=== PATIENT | male | born 1970 | race Caucasian/White ===

== ENCOUNTER 2018-04-14 08:32 | Inpatient (IN) | payer BC ==
[2018-04-14] MEDS ORDERED: MORPHINE 4 MG/ML SYR ONE ×2 (09:09→10:40)
[2018-04-14] MEDS ORDERED: ONDANSETRON 4 MG/2 ML VIAL ONE ×2 (09:09→10:40)
[2018-04-14] MEDS ORDERED: FAMOTIDINE 20 MG/2 ML VIAL IV ONE (09:10)
[2018-04-14] MEDS ORDERED: NA CHLORIDE 0.9% 1,000 ML ONE (09:10)
[2018-04-14 09:16] LABS: Absolute Lymphocytes (CBC) 1.9 K/uL (0.7-4.9); Absolute Monocytes 1.8 K/uL (0.1-1.3); Absolute Neutrophil 15.7 K/uL (1.8-8.0); Basophils % 0.9 % (0-1.3); Eosinophils % 0.6 % (0-4.4); Hematocrit 50.2 % (39.6-49.0); Lymphocytes % 9.6 % (15.3-44.8); MCV 84.6 fL (80-100); MPV 8.4 fL (7.6-11.3); Monocytes % 9.1 % (3.3-12.3); RBC Red Blood Cell Count 5.94 M/uL (4.33-5.43)
[2018-04-14 09:43] LABS: Albumin 4.2 g/dL (3.4-5.0); Bilirubin Direct 0.3 mg/dL (0-0.2); Potassium 4.2 mmol/L (3.5-5.1); Protein, Total 8.5 g/dL (6.4-8.2)
[2018-04-14] MEDS ORDERED: PIPER/TAZO/NS 3.375gm 3.375 GM/100 ML BAG ONE (10:17)
[2018-04-14] MEDS ORDERED: METRONIDAZOLE 500mg IVPB 500 MG/100 ML BAG IV ONE (10:17)
--- NOTE | 2018-04-14 10:18 | RAD REPORT ---
EXAM DESCRIPTION: CTAbdomen Pelvis W Contrast - 04/14/2018 10:07 am CLINICAL HISTORY: Abdominal pain. ABD PAIN COMPARISON: No comparisons TECHNIQUE: Biphasic CT imaging of the abdomen and pelvis was performed with 100 ml non-ionic IV cont rast. All CT scans are performed using dose optimization technique as appropriate and may include automated exposure control or mA/KV adjustment according to patient size. FINDINGS: The lung bases are clear. Mild diffuse fatty liver is seen. Cholecystectomy clips are present. The spleen, adrenal glands and k idneys are within normal limits. Small renal cysts are present bilaterally. Mild peripancreatic fat stranding and edema is seen involving the pancreatic head and uncinate proces s compatible with mild acute pancreatitis. No evidence of pancreatic necrosis, pseudocyst or portal v enous thrombosis. No bowel obstruction, free air, free fluid or abscess. The appendix appears absent. No evidence of significant lymphadenopathy. No suspicious bony findings. IMPRESSION: Mild acute pancreatitis is suspected. Fatty liver. Cholecystectomy. Appendectomy.
--- NOTE | 2018-04-14 10:30 | ER ---
Nurse's Notes [facility] Name: Jose Quevedo Age: 47 yrs Sex: Male : 1970 Arrival Date: 04/14/2018 Time: 08:33 Bed 18 Private MD: Eriberto Powell B Diagnosis: Acute pancreatitis;Abdominal and pelvic pain Presentation: 04/14 08:45 Presenting complaint: Patient states: abd pain, N/V/D x 4 days. Transition of care: ss patient was not received from another setting of care. Onset of symptoms was April 10, 2018. Risk Assessment: Do you want to hurt yourself or someone else? Patient reports no desire to harm self or others. Initial Sepsis Screen: Does the patient meet any 2 criteria? No. Patient's initial sepsis screen is negative. Does the patient have a suspected source of infection? No. Patient's initial sepsis screen is negative. Care prior to arrival: None. 08:45 Method Of Arrival: Ambulatory ss 08:45 Acuity: SUKHDEEP 3 ss Historical: - Allergies: 08:52 Codeine; ss 12:26 Talwin; em - Home Meds: 13:03 gabapentin 300 mg oral cap [Active]; Zofran (as hydrochloride) 8 mg Oral tab [Active]; em Colestid 1 gram Oral tab [Active]; lisinopril 10 mg Oral tab [Active]; Synjardy 12.5-1,000 mg oral tab [Active]; - PMHx: 08:52 Hypertension; Diabetes - IDDM; ss - PSHx: 08:52 back sx; R arm; hand (tendon release); Tonsillectomy; Adenoids; Appendectomy; ss 13:04 Cholecystectomy; em - Immunization history:: Adult Immunizations up to date. - Social history:: Smoking status: Patient/guardian denies using tobacco. - Ebola Screening: : Patient denies exposure to infectious person Patient denies travel to an Ebola-affected area in the 21 days before illness onset. Screenin:28 Abuse screen: Denies threats or abuse. Nutritional screening: No deficits noted. em Tuberculosis screening: No symptoms or risk factors identified. Fall Risk None identified. Assessment: 09:00 General: Appears in no apparent distress. uncomfortable, Behavior is calm, cooperative, em Reports fever for 12-24 hours. Pain: Complains of pain in right upper quadrant and right lower quadrant Pain currently is 8 out of 10 on a pain scale. Neuro: Level of Consciousness is awake, alert, obeys commands, Oriented to person, place, time, situation. Cardiovascular: Capillary refill < 3 seconds Patient's skin is warm and dry. Respiratory: Airway is patent Respiratory effort is even, unlabored, Respiratory pattern is regular, symmetrical. GI: Abdomen is round non-distended, Bowel sounds present X 4 quads. Abd is soft and non tender X 4 quads. Reports diarrhea, intolerance of fluids, intolerance of food, nausea, vomiting. : No signs and/or symptoms were reported regarding the genitourinary system. EENT: No signs and/or symptoms were reported regarding the EENT system. Derm: Skin is intact, Skin is pink, warm \T\ dry. Musculoskeletal: Range of motion: intact in all extremities. 09:01 General: the previous assessment is accurate, call light remains within reach. ss 10:00 Reassessment: Patient appears in no apparent distress at this time. Patient and/or em family updated on plan of care and expected duration. Pain level reassessed. Patient is alert, oriented x 3, equal unlabored respirations, skin warm/dry/pink. rates pain 4/10. 11:00 Reassessment: Patient appears in no apparent distress at this time. Patient and/or em family updated on plan of care and expected duration. Pain level reassessed. request more pain medication, Dr. Dubon notified, new orders received. 11:15 Reassessment: Dr. Nj at bedside discussing POC, pt will be admitted, pending room em assignment. 12:06 Reassessment: Patient appears in no apparent distress at this time. Patient and/or em family updated on plan of care and expected duration. Pain level reassessed. Patient is alert, oriented x 3, equal unlabored respirations, skin warm/dry/pink. Patient states feeling better. Patient states symptoms have improved. 13:00 Reassessment: Patient appears in no apparent distress at this time. Patient and/or em family updated on plan of care and expected duration. Pain level reassessed. Patient is alert, oriented x 3, equal unlabored respirations, skin warm/dry/pink. Vital Signs: 08:52 BP 148 / 103; Pulse 119; Resp 17; Pulse Ox 97% on R/A; Weight 136.08 kg; Height 6 ft. 3 ss in. (190.50 cm); Pain 8/10; 09:28 BP 140 / 99; Pulse 102; Resp 18; Pulse Ox 97% on R/A; Pain 4/10; em 10:30 BP 134 / 100; Pulse 105; Resp 18; Temp 98.1(O); Pulse Ox 99% on R/A; Pain 6/10; em 11:30 BP 132 / 88; Pulse 102; Resp 18; Pulse Ox 97% on R/A; Pain 4/10; em 12:55 BP 140 / 93; Pulse 100; Resp 18; Pulse Ox 98% on R/A; Pain 4/10; em 08:52 Body Mass Index 37.50 (136.08 kg, 190.50 cm) ss ED Course: 08:33 Patient arrived in ED. as 08:33 Eriberto Powell MD is Private Physician. as 08:34 Regan Dubon MD is Attending Physician. kdr 08:40 Shade Hawkins LVN is Primary Nurse. em 08:46 Triage completed. ss 08:52 Arm band placed on right wrist. ss 09:00 Initial lab(s) drawn, by me, sent to lab. Inserted saline lock: 20 gauge in left dh3 antecubital area, using aseptic technique. Blood collected. 09:08 Radiology exam delayed due to lab results not completed at this time. (BUN/Creatinine). kw1 09:28 Patient has correct armband on for positive identification. Placed in gown. Bed in low em position. Call light in reach. Side rails up X 1. Adult w/ patient. 10:06 CT completed. Patient tolerated procedure well. Patient moved back from CT. kw1 10:07 CT Abd/Pelvis - W/Contrast In Process Unspecified. EDMS 10:29 Laverne Nj MD is Hospitalizing Provider. kdr 10:30 Urine collected: clean catch specimen, ruiz colored. dh3 11:15 No provider procedures requiring assistance completed. Missed attempt(s): 20 gauge 22 em gauge in right forearm. antecubital area. Bleeding controlled, band aid applied, catheter tip intact. 12:56 Patient admitted, IV remains in place. em Administered Medications: 09:19 Drug: NS 0.9% 1000 ml Route: IV; Rate: 1 bolus; Site: left forearm; em 11:50 Follow up: IV Status: Completed infusion; IV Intake: 1000ml em 09:20 Drug: Zofran 4 mg Route: IVP; Site: left forearm; ss 10:06 Follow up: Response: No adverse reaction; Nausea is decreased em 09:20 Drug: morphine 4 mg Route: IVP; Site: left antecubital; ss 10:06 Follow up: Response: No adverse reaction; Pain is decreased em 09:21 Drug: Pepcid 20 mg Route: IVP; Site: left antecubital; ss 10:06 Follow up: Response: No adverse reaction em 10:33 Drug: Zosyn 3.375 grams Route: IVPB; Infused Over: 60 mins; Site: left antecubital; em 11:50 Follow up: Response: No adverse reaction; IV Status: Completed infusion; IV Intake: em 100ml 10:33 Drug: Flagyl 500 mg Volume: 100 ml; Route: IVPB; Rate: 200 ml/hr; Infused Over: 30 em mins; Site: left antecubital; 11:51 Follow up: Response: No adverse reaction; IV Status: Completed infusion; IV Intake: em 200ml 11:49 Drug: morphine 4 mg Route: IVP; Site: left antecubital; em 12:03 Follow up: Response: No adverse reaction; Pain is decreased em 11:49 Drug: NS 0.45 % 1000 ml Route: IV; Rate: 150 ml/hr; Site: left antecubital; em 13:08 Follow up: IV Status: Infusion continued upon admission; IV Intake: 200ml em 11:50 Drug: Zofran 4 mg Route: IVP; Site: left antecubital; em 12:03 Follow up: Response: No adverse reaction; Nausea is decreased em Intake: 11:50 IV: 1000ml; Total: 1000ml. em 11:50 IV: 100ml; Total: 1100ml. em 11:51 IV: 200ml; Total: 1300ml. em 13:08 IV: 200ml; Total: 1500ml. em Outcome: 10:30 Decision to Hospitalize by Provider. kdr 13:00 Admitted to Med/surg accompanied by tech, via wheelchair, room 417, with chart, Report em called to MAGDA Keane 13:00 Condition: good 13:00 Instructed on the need for admit, Demonstrated understanding of instructions. 13:31 Patient left the ED. em Signatures: Dispatcher [employer] EDRegan Guillen MD MD kdr Munoz, Edgar, CHIEF SERVICE DISPATCHER CHIEF SERVICE DISPATCHER Magalis Medina Shelby, MAGDA RN Linda Moss [facility] Kaelyn Chaudharyberly kw1 Corrections: (The following items were deleted from the chart) :34 09:30 Inserted saline lock: 20 gauge in left antecubital area, using aseptic technique. [facility] Blood collected. [facility] 34 09:30 Initial lab(s) drawn, by me, sent to lab. [place] [id number] 12:56 12:55 BP 109 / 3; Pulse 100bpm; Resp 18bpm; Pulse Ox 98% RA; Pain 4/10; em em
--- NOTE | 2018-04-14 10:31 | EDPHYS ---
Physician Documentation [facility] Name: Jose Quevedo Age: 47 yrs Sex: Male : 1970 Arrival Date: 04/14/2018 Time: 08:33 Bed 18 Private MD: Eriberto Powell B ED Physician Regan Dubon HPI: 04/14 10:03 This 47 yrs old Male presents to ER via Ambulatory with complaints of kdr Abdominal Pain. 10:03 The patient presents with abdominal pain that is diffuse. Onset: The symptoms/episode kdr began/occurred 4 day(s) ago. The symptoms do not radiate. Associated signs and symptoms: Pertinent positives: nausea, vomiting, and diarrhea, N/V/D at onset but no BM and little gas for the last 24 hours, Pertinent negatives: blood in stools, chest pain, constipation, fever, headache, hematuria, palpitations, shortness of breath, testicular pain. The symptoms are described as burning, constant, dull, vague. Modifying factors: The symptoms are alleviated by nothing, the symptoms are aggravated by breathing deeply, movement, pressure, vomiting, walking. Severity of pain: At its worst the pain was moderate severe just prior to arrival, in the emergency department the pain is unchanged. The patient has not experienced similar symptoms in the past. The patient has not recently seen a physician. Historical: - Allergies: 08:52 Codeine; ss 12:26 Talwin; em - Home Meds: 13:03 gabapentin 300 mg oral cap [Active]; Zofran (as hydrochloride) 8 mg Oral tab [Active]; em Colestid 1 gram Oral tab [Active]; lisinopril 10 mg Oral tab [Active]; Synjardy 12.5-1,000 mg oral tab [Active]; - PMHx: 08:52 Hypertension; Diabetes - IDDM; ss - PSHx: 08:52 back sx; R arm; hand (tendon release); Tonsillectomy; Adenoids; Appendectomy; ss 13:04 Cholecystectomy; em - Immunization history:: Adult Immunizations up to date. - Social history:: Smoking status: Patient/guardian denies using tobacco. - Ebola Screening: : Patient denies exposure to infectious person Patient denies travel to an Ebola-affected area in the 21 days before illness onset. ROS: 10:03 Constitutional: Negative for fever, chills, and weight loss, Eyes: Negative for injury, kdr pain, redness, and discharge, ENT: Negative for injury, pain, and discharge, Neck: Negative for injury, pain, and swelling, Cardiovascular: Negative for chest pain, palpitations, and edema, Respiratory: Negative for shortness of breath, cough, wheezing, and pleuritic chest pain, Back: Negative for injury and pain, : Negative for injury, bleeding, discharge, and swelling, MS/Extremity: Negative for injury and deformity, Skin: Negative for injury, rash, and discoloration, Neuro: Negative for headache, weakness, numbness, tingling, and seizure activity. Psych: Negative for depression, anxiety, suicide ideation, homicidal ideation, and hallucinations, Allergy/Immunology: Negative for hives, rash, and allergies, Endocrine: Negative for neck swelling, polydipsia, polyuria, polyphagia, and marked weight changes, Hematologic/Lymphatic: Negative for swollen nodes, abnormal bleeding, and unusual bruising. 10:03 Abdomen/GI: Positive for abdominal pain, nausea, vomiting, and diarrhea, abdominal cramps, anorexia, Negative for constipation, abdominal distension, hematemesis, black/tarry stool, rectal pain, rectal bleeding, bowel incontinence, flatulence. Exam: 10:03 Constitutional: This is a well developed, well nourished patient who is awake, alert, kdr and in no acute distress. Head/Face: Normocephalic, atraumatic. Eyes: Pupils equal round and reactive to light, extra-ocular motions intact. Lids and lashes normal. Conjunctiva and sclera are non-icteric and not injected. Cornea within normal limits. Periorbital areas with no swelling, redness, or edema. Neck: Trachea midline, no thyromegaly or masses palpated, and no cervical lymphadenopathy. Supple, full range of motion without nuchal rigidity, or vertebral point tenderness. No Meningismus. Chest/axilla: Normal chest wall appearance and motion. Nontender with no deformity. No lesions are appreciated. Cardiovascular: Regular rate and rhythm with a normal S1 and S2. No gallops, murmurs, or rubs. Normal PMI, no JVD. No pulse deficits. Respiratory: Lungs have equal breath sounds bilaterally, clear to auscultation and percussion. No rales, rhonchi or wheezes noted. No increased work of breathing, no retractions or nasal flaring. Back: No spinal tenderness. No costovertebral tenderness. Full range of motion. Skin: Warm, dry with normal turgor. Normal color with no rashes, no lesions, and no evidence of cellulitis. MS/ Extremity: Pulses equal, no cyanosis. Neurovascular intact. Full, normal range of motion. Neuro: Awake and alert, GCS 15, oriented to person, place, time, and situation. Cranial nerves II-XII grossly intact. Motor strength 5/5 in all extremities. Sensory grossly intact. Cerebellar exam normal. Normal gait. Psych: Awake, alert, with orientation to person, place and time. Behavior, mood, and affect are within normal limits. 10:03 Abdomen/GI: Inspection: obese Bowel sounds: diminished, in all quadrants, Palpation: soft, moderate abdominal tenderness, in all quadrants. Vital Signs: 08:52 BP 148 / 103; Pulse 119; Resp 17; Pulse Ox 97% on R/A; Weight 136.08 kg; Height 6 ft. 3 ss in. (190.50 cm); Pain 8/10; 09:28 BP 140 / 99; Pulse 102; Resp 18; Pulse Ox 97% on R/A; Pain 4/10; em 10:30 BP 134 / 100; Pulse 105; Resp 18; Temp 98.1(O); Pulse Ox 99% on R/A; Pain 6/10; em 11:30 BP 132 / 88; Pulse 102; Resp 18; Pulse Ox 97% on R/A; Pain 4/10; em 12:55 BP 140 / 93; Pulse 100; Resp 18; Pulse Ox 98% on R/A; Pain 4/10; em 08:52 Body Mass Index 37.50 (136.08 kg, 190.50 cm) ss MDM: 10:03 Data reviewed: vital signs, nurses notes, lab test result(s), radiologic studies. kdr Counseling: I had a detailed discussion with the patient and/or guardian regarding: the historical points, exam findings, and any diagnostic results supporting the discharge/admit diagnosis, lab results, radiology results. 10:30 Patient medically screened. kdr 04/14 08:55 Order name: Basic Metabolic Panel; Complete Time: 10:01 kdr 04/14 08:55 Order name: CBC with Diff; Complete Time: 10:01 kdr 04/14 08:55 Order name: Creatinine for Radiology; Complete Time: 10: kdr 04/14 08:55 Order name: Hepatic Function; Complete Time: 10: kdr 04/14 08:55 Order name: Lipase; Complete Time: 10: kdr 04/14 08:55 Order name: CT Abd/Pelvis - W/Contrast; Complete Time: 10:20 kdr 04/14 10:32 Order name: Urine Dipstick--Ancillary (enter results) eb 04/14 08:55 Order name: IV Saline Lock; Complete Time: 09: kdr 04/14 08:55 Order name: Labs collected and sent; Complete Time: 09: kdr 04/14 08:55 Order name: Urine Dipstick-Ancillary (obtain specimen); Complete Time: 10:31 kdr Administered Medications: 09:19 Drug: NS 0.9% 1000 ml Route: IV; Rate: 1 bolus; Site: left forearm; em 11:50 Follow up: IV Status: Completed infusion; IV Intake: 1000ml em 09:20 Drug: Zofran 4 mg Route: IVP; Site: left forearm; ss 10:06 Follow up: Response: No adverse reaction; Nausea is decreased em 09:20 Drug: morphine 4 mg Route: IVP; Site: left antecubital; ss 10:06 Follow up: Response: No adverse reaction; Pain is decreased em 09:21 Drug: Pepcid 20 mg Route: IVP; Site: left antecubital; ss 10:06 Follow up: Response: No adverse reaction em 10:33 Drug: Zosyn 3.375 grams Route: IVPB; Infused Over: 60 mins; Site: left antecubital; em 11:50 Follow up: Response: No adverse reaction; IV Status: Completed infusion; IV Intake: em 100ml 10:33 Drug: Flagyl 500 mg Volume: 100 ml; Route: IVPB; Rate: 200 ml/hr; Infused Over: 30 em mins; Site: left antecubital; 11:51 Follow up: Response: No adverse reaction; IV Status: Completed infusion; IV Intake: em 200ml 11:49 Drug: morphine 4 mg Route: IVP; Site: left antecubital; em 12:03 Follow up: Response: No adverse reaction; Pain is decreased em 11:49 Drug: NS 0.45 % 1000 ml Route: IV; Rate: 150 ml/hr; Site: left antecubital; em 13:08 Follow up: IV Status: Infusion continued upon admission; IV Intake: 200ml em 11:50 Drug: Zofran 4 mg Route: IVP; Site: left antecubital; em 12:03 Follow up: Response: No adverse reaction; Nausea is decreased em Disposition: 04/14/18 10:30 Hospitalization ordered by Laverne Nj for Inpatient Admission. Preliminary diagnosis are Acute pancreatitis, Abdominal and pelvic pain. - Bed requested for Telemetry/MedSurg (Inpatient). - Status is Inpatient Admission. em - Condition is Fair. - Problem is new. - Symptoms have improved. UTI on Admission? No Signatures: Dispatcher [employer] EDAK Regan Dubon MD MD [facility] Shade Hawkins, ORNAMENT SETTER ORNAMENT SETTER em Perez, Pb em1 Dayan Giron, AMGDA RN ss Pam Gregg Corrections: (The following items were deleted from the chart) 10:32 08:55 UA MICROSCOPIC+U.LAB.BRZ ordered. [facility] EDAK 10:38 10:30 Hospitalization Ordered by Laverne Nj MD for Inpatient Admission. Preliminary eb diagnosis is Acute pancreatitis; Abdominal and pelvic pain. Bed requested for Telemetry/MedSurg (Inpatient). Status is Inpatient Admission. Condition is Fair. Problem is new. Symptoms have improved. UTI on Admission? No. kdr 12:28 10:38 04/14/2018 10:30 Hospitalization Ordered by Laverne Nj MD for Inpatient em1 Admission. Preliminary diagnosis is Acute pancreatitis; Abdominal and pelvic pain. Bed requested for Telemetry/MedSurg (Inpatient). Status is Inpatient Admission. Condition is Fair. Problem is new. Symptoms have improved. UTI on Admission? No. eb 13:31 12:28 04/14/2018 10:30 Hospitalization Ordered by Laverne Nj MD for Inpatient em Admission. Preliminary diagnosis is Acute pancreatitis; Abdominal and pelvic pain. Bed requested for Telemetry/MedSurg (Inpatient). Status is Inpatient Admission. Condition is Fair. Problem is new. Symptoms have improved. UTI on Admission? No. em1
[2018-04-14] MEDS ORDERED: NACHLORIDE 0.45% 1,000 ML IV ONE (10:40)
[2018-04-14 10:49] LABS: Urine Blood TRACE (NEG); Urine Glucose 2+ (NEG); Urine Protein TRACE (NEG); Urine Specific Gravity 1.015 (1.005-1.030); Urine pH 5.5 (5.0-7.0)
--- NOTE | 2018-04-14 12:59 | P.HP ---
Certification for Inpatient Patient admitted to: Inpatient With expected LOS: >2 Midnights Patient will require the following post-hospital care: None Practitioner: I am a practitioner with admitting privileges, knowledge of patient current condition, hospital course, and medical plan of care. Services: Services provided to patient in accordance with Admission requirements found in Title 42 Section 412.3 of the Code of Federal Regulations Patient History Date of Service: 04/14/18 Primary Care Provider: Dr Powell Reason for admission: Abd Pain History of Present Illness: This is a 47-year-old male with significant past medical history of diabetes and hypertension presented to the ED complaining of having some abdominal pain nausea and vomiting that has been going on since last Monday. Patient stated that his abdominal pain got progressively worse and he was no longer able to keep anything down thus he decided to come to the ER. Patient stated that he was recently seen by his primary care provider and had lab work done which was consistent with hypertriglycerides and was asked to take medication and make diet modification to avoid any complication. Patient stated that his abdominal pain is generalized and cramping in nature. Patient stated that last night he tried to have some soup however had committing immediately after that. Patient states that the since last Monday he has not had anything to eat properly. Patient also complained of having some chills at the house. Denies having any fever, shortness of breath chest pain or any other associated symptoms at this time. In the ER patient had extensive workup and was found to have a lipase of 10,000 and thus was referred over for admission for pancreatitis. Review of Systems General: As per HPI Physical Examination - Physical Exam General: Alert, Oriented x3, Mild distress HEENT: Atraumatic Neck: Supple, 2+ carotid pulse no bruit, No LAD, Without JVD or thyroid abnormality Respiratory: Clear to auscultation bilaterally, Normal air movement Cardiovascular: Regular rate/rhythm, Normal S1 S2 Gastrointestinal: Normal bowel sounds, Soft and benign, Non-distended, Tenderness (Generalized tenderness) Musculoskeletal: No tenderness Integumentary: No rashes Neurological: Normal speech, Normal tone Lymphatics: No axilla or inguinal lymphadenopathy - Studies Laboratory Data (last 24 hrs) 04/14/18 09:03: Creatinine 1.00 04/14/18 09:03: WBC 19.7 H, Hgb 17.2, Hct 50.2 H, Plt Count 326 04/14/18 09:03: Sodium 133 L, Potassium 4.2, BUN 13, Creatinine 1.00, Glucose 127 H, Total Bilirubin 1.0, AST 41 H, ALT 74, Alkaline Phosphatase 142 H, Lipase [id number] H Assessment and Plan - Problems (Diagnosis) (1) Pancreatitis Current Visit: Yes Status: Acute Plan: Acute pancreatitis with lipase of more than 10,000 most likely secondary to hypertriglyceridemia. Patient is status post cholecystectomy and appendectomy. Patient also denies alcohol use along with tobacco usage. -IV fluids, NPO, pain management -patient educated extensively on the disease process and the need to make lifestyle modification with diet and exercise changes. Qualifiers: Chronicity: acute Pancreatitis type: unspecified pancreatitis type Acute pancreatitis complication: no infection or necrosis Qualified Code(s): K85.90 - Acute pancreatitis without necrosis or infection, unspecified (2) HTN (hypertension) Current Visit: Yes Status: Chronic Plan: Restart home medication Qualifiers: Hypertension type: essential hypertension Qualified Code(s): I10 - Essential (primary) hypertension (3) Diabetes Current Visit: Yes Status: Chronic Plan: Restart home medication Qualifiers: Diabetes mellitus type: type 2 Diabetes mellitus shelter insulin use: without superintendent container terminal use Diabetes mellitus complication status: without complication Qualified Code(s): E11.9 - Type 2 diabetes mellitus without complications (4) Hyperlipidemia Current Visit: Yes Status: Chronic Plan: Restart home medication Qualifiers: Hyperlipidemia type: pure hyperglyceridemia Qualified Code(s): E78.1 - Pure hyperglyceridemia (5) Obesity Current Visit: Yes Status: Chronic Qualifiers: Obesity type: due to excess calories Obesity classification: adult class 1 (BMI 30 - 34.9) Serious obesity comorbidity presence: without serious comorbidity Body mass index: BMI 32.0-32.9 Qualified Code(s): E66.09 - Other obesity due to excess calories; Z68.32 - Body mass index (BMI) 32.0-32.9, adult Discharge Plan: Home Plan to discharge in: 72 Hours - Advance Directives Does patient have a Living Will: No Does patient have a Durable POA for Healthcare: No - Code Status/Comfort Care Code Status Assessed: Yes Critical Care: No
[2018-04-14] MEDS: ONDANSETRON 4 MG/2 ML VIAL IV PRN ×2 (14:03→20:23)
[2018-04-14] MEDS: MORPHINE 4 MG/ML SYR IV PRN ×3 (14:03→22:16)
[2018-04-14] MEDS: NA CHLORIDE 0.9% 1,000 ML IV SCH ×2 (14:04→22:15)
[2018-04-14 15:03] VITALS: BMI 37.5
[2018-04-14] MEDS: ACETAMINOPHEN 500 MG TAB PO PRN (20:23)
[2018-04-14 22:53] LABS: Absolute Lymphocytes (CBC) 1.5 K/uL (0.7-4.9); Absolute Monocytes 2.1 K/uL (0.1-1.3); Absolute Neutrophil 16.7 K/uL (1.8-8.0); Basophils % 0.6 % (0-1.3); Eosinophils % 0.3 % (0-4.4); Hematocrit 46.3 % (39.6-49.0); Lymphocytes % 7.2 % (15.3-44.8); MCH 28.8 pg (27.0-35.0); MCV 85.5 fL (80-100); MPV 8.3 fL (7.6-11.3); Monocytes % 10.1 % (3.3-12.3); RBC Red Blood Cell Count 5.41 M/uL (4.33-5.43)
[2018-04-14 23:02] LABS: Albumin 3.6 g/dL (3.4-5.0); Bilirubin Total 1.6 mg/dL (0.2-1.0); Potassium 4.1 mmol/L (3.5-5.1); Protein, Total 7.4 g/dL (6.4-8.2)
[2018-04-14 23:13] LABS: Platelet Estimate ADEQ
[2018-04-14 23:14] LABS: Blood Morphology Comment NOT SEEN (NOT SEEN)
[2018-04-15] MEDS: ACETAMINOPHEN 500 MG TAB PO PRN ×2 (00:30→15:40)
[2018-04-15] MEDS: MORPHINE 4 MG/ML SYR IV PRN ×9 (01:53→23:32)
[2018-04-15 05:14] LABS: Absolute Lymphocytes (CBC) 1.6 K/uL (0.7-4.9); Absolute Neutrophil 17.2 K/uL (1.8-8.0); Basophils % 0.8 % (0-1.3); Eosinophils % 0.2 % (0-4.4); Hematocrit 46.8 % (39.6-49.0); Lymphocytes % 7.7 % (15.3-44.8); MCH 28.6 pg (27.0-35.0); MCV 86.2 fL (80-100); MPV 8.5 fL (7.6-11.3); Monocytes % 9.5 % (3.3-12.3); RBC Red Blood Cell Count 5.43 M/uL (4.33-5.43)
[2018-04-15 05:48] LABS: Albumin 3.5 g/dL (3.4-5.0); Bilirubin Total 1.8 mg/dL (0.2-1.0); Magnesium 2.3 mg/dL (1.8-2.4); Phosphorus 3.2 mg/dL (2.5-4.9); Potassium 4.3 mmol/L (3.5-5.1); Protein, Total 7.4 g/dL (6.4-8.2)
[2018-04-15] MEDS: ONDANSETRON 4 MG/2 ML VIAL IV PRN ×4 (05:50→19:35)
[2018-04-15] MEDS: NA CHLORIDE 0.9% 1,000 ML IV SCH ×2 (07:17→19:09)
[2018-04-15] MEDS: LISINOPRIL 10 MG TAB PO SCH (07:42)
[2018-04-15] MEDS: ENOXAPARIN 40 MG/0.4 ML SQ SCH (07:44)
[2018-04-15] MEDS: Meropenem 1,000 MG in NA CHLORIDE 0.9% 100 ML IV SCH ×2 (11:07→17:32)
--- NOTE | 2018-04-15 11:34 | P.PN ---
Subjective Date of Service: 04/15/18 Primary Care Provider: Dr Powell Chief Complaint: Abd Pain Patient seen and examined at bedside with RN. Chart reviewed. Case discussed with patient's family member at bedside. Currently patient states that his abdominal pain is better than before. Complains of having nausea but no vomiting noted. No other complaints to offer an no fever chills noted overnight Review of Systems General: As per HPI Physical Examination - Vital Signs Temperature: 98.4 F Blood Pressure: 185/101 Pulse: 103 Respirations: 18 Pulse Ox (%): 97 - Physical Exam General: Alert, In no apparent distress, Oriented x3 HEENT: Atraumatic Neck: Supple, JVD not distended Respiratory: Clear to auscultation bilaterally, Normal air movement Cardiovascular: Regular rate/rhythm, Normal S1 S2 Gastrointestinal: Normal bowel sounds, Soft and benign, Non-distended, Tenderness (Generalized) Musculoskeletal: No tenderness Integumentary: No rashes Neurological: Normal speech, Normal tone, Normal affect Lymphatics: No axilla or inguinal lymphadenopathy - Studies Medications List Reviewed: Yes Assessment & Plan - Problems (Diagnosis) (1) Pancreatitis Current Visit: Yes Status: Acute Plan: Acute pancreatitis with lipase of more than 10,000 most likely secondary to hypertriglyceridemia vs Trulicity. -Lipase is <1500 today -Elevated White Count and thus started in Mer[place]um IV fluids, NPO, pain management -patient educated extensively on the disease process and the need to make lifestyle modification with diet and exercise changes. 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: without termite treater helper use Diabetes mellitus complication status: without complication Qualified Code(s): E11.9 - Type 2 diabetes mellitus without complications (4) Hyperlipidemia Current Visit: Yes Status: Chronic Plan: Restart home medication Qualifiers: Hyperlipidemia type: pure hyperglyceridemia Qualified Code(s): E78.1 - Pure hyperglyceridemia (5) Obesity Current Visit: Yes Status: Chronic Qualifiers: Obesity type: due to excess calories Obesity classification: adult class 1 (BMI 30 - 34.9) Serious obesity comorbidity presence: without serious comorbidity Body mass index: BMI 32.0-32.9 Qualified Code(s): E66.09 - Other obesity due to excess calories; Z68.32 - Body mass index (BMI) 32.0-32.9, adult Discharge Plan: Home Plan to discharge in: 48 Hours - Code Status/Comfort Care Code Status Assessed: Yes Critical Care: No
[2018-04-16] MEDS: Meropenem 1,000 MG in NA CHLORIDE 0.9% 100 ML IV SCH ×3 (00:27→18:31)
[2018-04-16] MEDS: MORPHINE 4 MG/ML SYR IV PRN ×9 (01:46→23:28)
[2018-04-16] MEDS: ONDANSETRON 4 MG/2 ML VIAL IV PRN ×3 (04:32→21:01)
[2018-04-16 05:28] LABS: Absolute Lymphocytes (CBC) 1.5 K/uL (0.7-4.9); Absolute Monocytes 1.7 K/uL (0.1-1.3); Absolute Neutrophil 13.9 K/uL (1.8-8.0); Eosinophils % 0.6 % (0-4.4); Hematocrit 42.7 % (39.6-49.0); Lymphocytes % 8.5 % (15.3-44.8); MCV 85.7 fL (80-100); MPV 8.2 fL (7.6-11.3); Monocytes % 9.6 % (3.3-12.3); RBC Red Blood Cell Count 4.98 M/uL (4.33-5.43)
[2018-04-16 05:44] LABS: ALT/SGPT 97 U/L (12-78); AST/SGOT 35 U/L (15-37); Alkaline Phosphatase 160 U/L (45-117); BUN Blood Urea Nitrogen 11 mg/dL (7-18); Bicarbonate 22 mmol/L (21-32); Bilirubin Total 1.6 mg/dL (0.2-1.0); Glucose Level 112 mg/dL (74-106); Lipase 667 U/L (73-393); Magnesium 2.1 mg/dL (1.8-2.4); Phosphorus 2.4 mg/dL (2.5-4.9); Potassium 4.3 mmol/L (3.5-5.1); Protein, Total 7.1 g/dL (6.4-8.2); Sodium Level 134 mmol/L (136-145)
[2018-04-16] MEDS: NA CHLORIDE 0.9% 1,000 ML IV SCH ×2 (05:52→15:52)
[2018-04-16] MEDS ORDERED: Meropenem 1000 MG/VIAL IV SCH (09:00)
[2018-04-16] MEDS: LISINOPRIL 10 MG TAB PO SCH (10:04)
[2018-04-16] MEDS: ENOXAPARIN 40 MG/0.4 ML SQ SCH (10:04)
--- NOTE | 2018-04-16 13:34 | PN ---
Date of Progress Note: 04/16/2018 Subjective: The patient is seen and examined. Chart reviewed and case discussed with RN. The patient states he is still having some abdominal pain, able to tolerate sips of water. Review of Systems: Negative except as above. Medications: List reviewed. Physical Examination: Vital Signs: Temperature 97.5, heart rate 98, blood pressure 121/91, respirations 18, OS 97% on room air. General: Awake, alert, oriented x3. Some mild distress, morbidly obese male. CV: S1, S2. No murmurs. Respiratory: Moving air well bilaterally. No wheezing. Gastrointestinal: Abdomen is soft. Mild tenderness to palpation. Nondistended. Positive bowel sounds. Extremities: No clubbing, cyanosis, edema. Neurologic: Nonfocal. Laboratory Data: Sodium 134, potassium 4.3, chloride 101, CO2 22, BUN 11, creatinine 0.8, glucose 112, calcium 8.8, phosphorus 2.4, magnesium 2.1. AST is 35, ALT 97, alkaline phosphatase 160, lipase <700. WBC 17.3, H and H 14.5 and 42.7, platelets 251, neutrophils 80%. Blood cultures, no growth to date. Assessment And Plan: A 47-year-old male with: 1. Acute pancreatitis. Lipase is trending down. We will start on full liquid diet and advance as tolerated. Likely secondary to hypertriglyceridemia or possibly side effects from Trulicity. White count trending down as well. Continue IV fluids and pain control. 2. Obesity, BMI 37.5. Counseled. 3. Hypophosphatemia. Replace and monitor. 4. Essential hypertension, stable. 5. Diabetes mellitus type 2 without long-term use of insulin with hyperglycemia, stable. We will continue sliding scale insulin. 6. Hyperlipidemia with hypertriglyceridemia as well. 7. Gastrointestinal and deep venous thrombosis prophylaxis addressed. SA/MODL Voice ID: [id number] Report ID: [id number] MTDD
[2018-04-17] MEDS: NA CHLORIDE 0.9% 1,000 ML IV SCH ×2 (01:37→11:52)
[2018-04-17] MEDS: ONDANSETRON 4 MG/2 ML VIAL IV PRN ×2 (01:37→06:08)
[2018-04-17] MEDS: Meropenem 1,000 MG in NA CHLORIDE 0.9% 100 ML IV SCH ×2 (01:37→09:38)
[2018-04-17] MEDS: MORPHINE 4 MG/ML SYR IV PRN ×2 (01:37→06:09)
[2018-04-17 02:24] VITALS: O2SAT 96
[2018-04-17 04:26] LABS: Absolute Lymphocytes (CBC) 1.3 K/uL (0.7-4.9); Absolute Monocytes 1.3 K/uL (0.1-1.3); Absolute Neutrophil 9.8 K/uL (1.8-8.0); Basophils % 0.6 % (0-1.3); Eosinophils % 2.6 % (0-4.4); Hematocrit 41.5 % (39.6-49.0); Lymphocytes % 10.4 % (15.3-44.8); MCH 29.1 pg (27.0-35.0); MCV 85.9 fL (80-100); MPV 8.4 fL (7.6-11.3); Monocytes % 10.4 % (3.3-12.3); RBC Red Blood Cell Count 4.83 M/uL (4.33-5.43)
[2018-04-17 04:39] LABS: ALT/SGPT 84 U/L (12-78); AST/SGOT 32 U/L (15-37); Albumin 2.8 g/dL (3.4-5.0); Alkaline Phosphatase 166 U/L (45-117); BUN Blood Urea Nitrogen 10 mg/dL (7-18); Bicarbonate 25 mmol/L (21-32); Glucose Level 124 mg/dL (74-106); Lipase 528 U/L (73-393); Magnesium 2.1 mg/dL (1.8-2.4); Phosphorus 2.6 mg/dL (2.5-4.9); Potassium 3.7 mmol/L (3.5-5.1); Protein, Total 6.7 g/dL (6.4-8.2); Sodium Level 136 mmol/L (136-145)
[2018-04-17] MEDS ORDERED: POTASSIUM 25 MEQ EFFERV TAB PO ONE (05:29)
[2018-04-17] MEDS ORDERED: HYDROCODONE/APAP 7.5/325 MG TAB PO PRN (09:35)
[2018-04-17] MEDS: ENOXAPARIN 40 MG/0.4 ML SQ SCH (09:39)
[2018-04-17] MEDS: LISINOPRIL 10 MG TAB PO SCH (09:39)
[2018-04-17] MEDS ORDERED: TRAMADOL HCL 50 MG TAB PO PRN (10:05)
[2018-04-17 12:30] VITALS: BP 131/81; TEMP 97.8
--- NOTE | 2018-04-17 14:55 | DS ---
Date of Discharge: 04/17/2018 Admitting Diagnoses: 1.Acute pancreatitis. 2.Hypertension. 3.Diabetes. 4.Hyperlipidemia. 5.Obesity. Discharge Diagnoses: 1.Acute pancreatitis likely secondary to medication side effect. 2.Obesity, BMI 37.5. 3.Hypophosphatemia, replaced. 4.Essential hypertension, stable. 5.Diabetes mellitus type 2 without long-term use of insulin with hyperglycemia. Trulicity discontin ued. 6.Hyperlipidemia and hypertriglyceridemia. Hospital Course: The patient is a 47-year-old male, comes in with abdominal pain, found to have panc reatitis with lipase over 10,000. The patient initially started on Trulicity, which was thought to b e a possible etiology. Denies any alcohol. Workup did not reveal any stones or cholelithiasis. He did have fatty liver and his CT did show some mild pancreatitis. There was no evidence of necrosis o r pseudocyst. The patient did well with treatment. He was placed on IV fluids. His lipase trended down and was around 528 on discharge. He did have an elevated white count. The patient's white coun t improved and trending down. No other source of infection and the patient was afebrile. His blood cultures showed no growth to date. The patient's Trulicity was discontinued and is likely etiology o f his pancreatitis. The patient was instructed to discontinue Trulicity and to follow up with his [facility] care physician. The patient was able to slowly advance his diet and tolerate bland food and a GI soft diet. He was then no longer nauseated or vomiting. Pain had resolved. He was then discharg ed home in a stable condition, activity as tolerated. Medications: As per medication reconciliation list. Activity: No driving or operating heavy machinery while on narcotics. Followup: Follow up with primary care physician in 2-3 days. Return to ER for worsening condition. Total time spent discharging the patient was 41 minutes. Physical Examination: General: Awake, alert, oriented, no acute distress. CV: S1, S2. No murmurs. Respiratory: Clear to auscultation bilaterally. No wheezing. Gastrointestinal: Abdomen is soft, nontender, nondistended. Positive bowel sounds. Extremities: No clubbing, cyanosis, edema. Neurologic: Nonfocal. SA/MODL Voice ID: [id number] Report ID: [id number]
== END 2018-04-17 14:11 | disposition home or self-care (01) | DRG 440 ==
LOC: ER 08:32 → ERHOLD 10:51 → 4TH 13:14
PROVIDERS: ADMIT Family Medicine; ATTEND Family Medicine
DX: K85.30 Drug induced acute pancreatitis without necrosis or infection (principal); I10 Essential (primary) hypertension; E66.09 Other obesity due to excess calories; Z68.32 Body mass index [BMI] 32.0-32.9, adult; E83.39 Other disorders of phosphorus metabolism; T38.3X5A Adverse effect of insulin and oral hypoglycemic [antidiabetic] drugs, initial encounter; E11.65 Type 2 diabetes mellitus with hyperglycemia; E78.2 Mixed hyperlipidemia; Z79.84 Long term (current) use of oral hypoglycemic drugs; Z88.5 Allergy status to narcotic agent
CPT/HCPCS: 36415; 74177; 80048; 80053; 80076; 81003; 82962; 83605; 83690; 83735; 84100; 85025; 87040; 99285; J1650; J2405; J2543; J7030; Q9967

== ENCOUNTER 2021-06-16 15:33 | Emergency (ER) | payer OTHER ==
[2021-06-16 16:44] LABS: Absolute Lymphocytes (CBC) 3.4 K/uL (0.7-4.9); Basophils % 1.1 % (0-1.3); Hematocrit 48.5 % (39.6-49.0); Lymphocytes % 24.6 % (15.3-44.8); MPV 7.9 fL (7.6-11.3); RBC Red Blood Cell Count 5.75 M/uL (4.33-5.43)
[2021-06-16 16:45] LABS: Protime INR 1.09
[2021-06-16 17:02] LABS: ALT/SGPT 131 U/L (12-78); AST/SGOT 36 U/L (15-37); Albumin 3.8 g/dL (3.4-5.0); Alkaline Phosphatase 127 U/L (45-117); BUN Blood Urea Nitrogen 17 mg/dL (7-18); Bicarbonate 23 mmol/L (21-32); Bilirubin Direct 0.2 mg/dL (0-0.2); Bilirubin Total 0.6 mg/dL (0.2-1.0); Glucose Level 190 mg/dL (74-106); NT PRO-BNP 10 pg/mL (<125); Potassium 4.1 mmol/L (3.5-5.1); Protein, Total 7.7 g/dL (6.4-8.2); Sodium Level 136 mmol/L (136-145); Troponin (Emerg Dept Use Only) < 0.02 ng/mL (0.0-0.045)
--- NOTE | 2021-06-16 17:12 | RAD REPORT ---
EXAM DESCRIPTION: RAD - Chest Single View - 06/16/2021 4:51 pm CLINICAL HISTORY: SOB Chest pain. COMPARISON: Chest Pa And Lat (2 Views) dated 01/23/2019; CHEST PA AND LAT 2 VIEW dated 11/20/2014 FINDINGS: Portable technique limits examination quality. Mild bilateral interstitial lung opacities are present. The heart is mildly enlarged in size. No disp laced fractures. IMPRESSION: Mild CHF versus underlying viral infection.
[2021-06-16] MEDS ORDERED: FENTANYL CITR 100 MCG/2 ML ONE ×2 (17:26→19:45)
--- NOTE | 2021-06-16 17:51 | RAD REPORT ---
EXAM DESCRIPTION: CT - Chest For Pe Angio - 06/16/2021 5:37 pm CLINICAL HISTORY: Chest pain. Chest pain;SOB COMPARISON: Chest Single View dated 06/16/2021 TECHNIQUE: CT angiogram of the pulmonary arteries was performed with MIP. All CT scans are performed using dose optimization technique as appropriate and may include automated exposure control or mA/KV adjustment according to patient size. FINDINGS: No evidence of pulmonary thromboembolism. No acute aortic finding demonstrated. Mild interstitial pulmonary edema is noted. No significant pericardial or pleural fluid. No concerning bony finding. IMPRESSION: No evidence of pulmonary thromboembolism. Mild interstitial pulmonary edema suspected.
--- NOTE | 2021-06-16 21:07 | ER ---
Nurse's Notes [facility] Name: Jose Quevedo Age: 50 yrs Sex: Male : 1970 Arrival Date: 06/16/2021 Time: 15:37 Bed 12 Private MD: Eriberto Powell B Diagnosis: Chest pain, unspecified;Dyspnea Presentation: 06/16 15:39 Chief complaint: Patient states: SOB, back pain, right shoulder x 4 days. Unable to kg sleep x 3 nights. Coronavirus screen: Vaccine status: Patient reports receiving the 2nd dose of the covid vaccine. Date December 13, 2020 Moderna Patient reports receiving the 1st dose of the Covid vaccine. Date November 15, 2020 Moderna Client denies travel out of the [place] in the last 14 days. shortness of breath, Client presents with at least one sign or symptom that may indicate coronavirus-19. Standard/surgical mask placed on the client. Provider contacted for isolation considerations. Ebola Screen: Patient negative for fever greater than or equal to 101.5 degrees Fahrenheit, and additional compatible Ebola Virus Disease symptoms Patient denies exposure to infectious person. Patient denies travel to an Ebola-affected area in the 21 days before illness onset. Initial Sepsis Screen: Does the patient meet any 2 criteria? No. Patient's initial sepsis screen is negative. Does the patient have a suspected source of infection? No. Patient's initial sepsis screen is negative. Risk Assessment: Do you want to hurt yourself or someone else? Patient reports no desire to harm self or others. Onset of symptoms was June 12, 2021. 15:39 Method Of Arrival: Ambulatory kg 15:39 Acuity: SUKHDEEP 3 kg Triage Assessment: 19:35 General: Behavior is. cc4 Historical: - Allergies: 15:42 Talwin; kg 15:42 Sulfa (Sulfonamide Antibiotics); kg 15:42 Trulicity; kg - Home Meds: 15:42 lisinopril Oral [Active]; Prilosec 40 mg Oral cpDR [Active]; ezetimibe 10 mg oral tab kg [Active]; Kombiglyze XR 5-500 mg oral TM24 [Active]; gabapentin 300 mg oral cap [Active]; albuterol sulfate Inhl [Active]; 15:49 Trelegy Ellipta 100-62.5-25 mcg inhalation dsdv [Active]; kg - PMHx: 15:42 Hypertension; Diabetes - IDDM; Asthma; RA; kg - PSHx: 15:42 Appendectomy; Cholecystectomy; Tonsillectomy; Adenoid excision; back sx x 2; Knee sx x4;kg - Immunization history:: Adult Immunizations not up to date, Client reports receiving the 2nd dose of the Covid vaccine, Date received: December 13, 2020 [facility] Client reports receiving the 1st dose of the Covid vaccine, November 15, 2020 [facility] [place]. - Social history:: Smoking status: Patient denies any tobacco usage or history of. Patient uses alcohol, occasionally. Screenin:42 Abuse screen: Denies threats or abuse. Denies injuries from another. Nutritional tc5 screening: No deficits noted. Tuberculosis screening: No symptoms or risk factors identified. Fall Risk None identified. Assessment: 16:40 General: Appears uncomfortable. Pain: Complains of pain in anterior aspect of right tc5 shoulder. Neuro: No deficits noted. Cardiovascular: No deficits noted. Respiratory: No deficits noted. GI: No deficits noted. : No deficits noted. EENT: No deficits noted. Derm: No deficits noted. Musculoskeletal: Reports pt reports rt shoulder pain since last Monday, states he has not been able to sleep because of the pain, currently rates the pain 6/10. 19:28 Reassessment: c/o right 'Shoulder blade" pain "7" on pain scale; fentanyl 50 mcg given cc4 slow IVP; sinus tachycardia with no vent. ectopy noted; no resp difficulty noted; nurse call in reach. 19:35 Neuro: Level of Consciousness is awake, alert, obeys commands. cc4 19:55 Reassessment: Patient appears in no apparent distress at this time. Awake \\T\\ talking on cc4 cell phone; reports right "shoulder blade" pain decreasing to "4" on pain scale; HR 99; BP 121/88; RR 18. 21:35 Reassessment: Patient appears in no apparent distress at this time. Reports decreased cc4 right shoulder blade pain; \\T\\ chairside; discharge instructions with Rx x1 given with v/u; saline lock removed right AC; NADN. Vital Signs: 15:39 Pulse 113; Resp 22; Temp 98.5(TE); Pulse Ox 96% on R/A; Weight 145.15 kg (R); Height 6 kg ft. 3 in. (190.50 cm); Pain 6/10; 17:14 BP 118 / 93; Pulse 100; Resp 16; Pulse Ox 95% ; Pain 4/10; tc5 18:31 BP 129 / 98; Pulse 95; Resp 16; Pulse Ox 97% ; tc5 19:28 BP 124 / 93; Pulse 105; Resp 18; Pulse Ox 97% on R/A; cc4 19:55 BP 121 / 88; Pulse 99; Resp 18; Pulse Ox 97% on R/A; cc4 21:35 BP 126 / 83; Pulse 98; Resp 22; Temp 96.9(O); Pulse Ox 97% on R/A; cc4 15:39 Body Mass Index 40.00 (145.15 kg, 190.50 cm) kg Vitals: 19:28 Cardiac Rhythm Assessment Regular Sinus tach. cc4 ED Course: 15:37 Patient arrived in ED. mr 15:37 Eriberto Powell MD is Private Physician. mr 15:42 Triage completed. kg 15:48 Lanette Redding, MAGDA is Primary Nurse. tc5 15:57 Regan Dubon MD is Attending Physician. kdr 16:07 Kt Peck PA is PHCP. jr8 16:42 Inserted saline lock: 20 gauge in right antecubital area, using aseptic technique. tc5 Blood collected. 16:51 XRAY Chest (1 view) In Process Unspecified. EDMS 17:37 CT Chest For PE Angio In Process Unspecified. EDMS 18:38 COVID-19 : Document "Date of Symptom Onset" if Symptomatic. Sent. tc5 19:35 No provider procedures requiring assistance completed. cc4 19:35 Arm band placed on. cc4 19:35 Patient has correct armband on for positive identification. Call light in reach. cc4 joy operator helper on. Pulse ox on. NIBP on. 20:57 Basic Metabolic Panel Sent. cc4 20:57 CBC with Diff Sent. cc4 21:35 IV discontinued, intact, bleeding controlled, No redness/swelling at site. Pressure cc4 dressing applied. Administered Medications: 17:00 Drug: fentaNYL (PF) 50 mcg Route: IVP; Site: right antecubital; tc5 17:38 Follow up: Response: No adverse reaction; Pain is decreased tc5 19:28 Drug: fentaNYL (PF) 50 mcg {Note: c/o right "shoulder blade" pain "7" on pain scale..} cc4 Route: IVP; Site: right antecubital; 19:55 Follow up: Response: No adverse reaction; Pain is decreased cc4 Outcome: 19:35 Condition: stable cc4 21:07 Discharge ordered by . jarad 21:35 Discharged to home with family, with significant other. cc4 21:35 Condition: good 21:35 Discharge instructions given to patient, significant other, Instructed on discharge instructions, follow up and referral plans. medication usage, Demonstrated understanding of instructions, follow-up care, medications. 21:45 Patient left the ED. cc4 Signatures: Dispatcher [employer] EDMS Regan Dubon MD MD kdr Rivera, Mary mr Kt Peck PA PA jr8 Hortensia Olvera RN RN kg Leann Do RN RN cc4 Lanette Redding RN RN tc5 Corrections: (The following items were deleted from the chart) 15:48 15:42 Allergies: Codeine; kg kg 15:50 15:42 Home Meds: trilogy; kg kg
--- NOTE | 2021-06-16 21:08 | EDPHYS ---
Physician Documentation [facility] Name: Jose Quevedo Age: 50 yrs Sex: Male : 1970 Arrival Date: 06/16/2021 Time: 15:37 Bed 12 Private MD: Eriberto Powell B ED Physician Regan Dubon HPI: 06/16 19:09 This 50 yrs old Male presents to ER via Ambulatory with complaints of Back jr8 Pain, Breathing Difficulty. 19:09 This is a 50-year-old female patient that presented to the emergency room with jr8 complaints of right-sided chest pain and right scapular plane with shortness of breath. Patient stated that it has become worse over the last 48 hours to the point where he cannot lay flat. Denies trauma or work related injury. Denies having symptoms like this in the past. Patient was recently put on asthma medications although there is not an official asthma diagnosis per his physician. Stated that they have done PFTs on him showing 50% capacity. Historical: - Allergies: 15:42 Talwin; kg 15:42 Sulfa (Sulfonamide Antibiotics); kg 15:42 Trulicity; kg - Home Meds: 15:42 lisinopril Oral [Active]; Prilosec 40 mg Oral cpDR [Active]; ezetimibe 10 mg oral tab kg [Active]; Kombiglyze XR 5-500 mg oral TM24 [Active]; gabapentin 300 mg oral cap [Active]; albuterol sulfate Inhl [Active]; 15:49 Trelegy Ellipta 100-62.5-25 mcg inhalation dsdv [Active]; kg - PMHx: 15:42 Hypertension; Diabetes - IDDM; Asthma; RA; kg - PSHx: 15:42 Appendectomy; Cholecystectomy; Tonsillectomy; Adenoid excision; back sx x 2; Knee sx x4;kg - Immunization history:: Adult Immunizations not up to date, Client reports receiving the 2nd dose of the Covid vaccine, Date received: December 13, 2020 Client reports receiving the 1st dose of the Covid vaccine, November 15, 2020. - Social history:: Smoking status: Patient denies any tobacco usage or history of. Patient uses alcohol, occasionally. ROS: 19:09 Eyes: Negative for injury, pain, redness, and discharge, ENT: Negative for injury, jr8 pain, and discharge, Neck: Negative for injury, pain, and swelling, Abdomen/GI: Negative for abdominal pain, nausea, vomiting, diarrhea, and constipation, MS/Extremity: Negative for injury and deformity, Skin: Negative for injury, rash, and discoloration, Neuro: Negative for headache, weakness, numbness, tingling, and seizure. 19:09 Cardiovascular: Positive for chest pain, Negative for edema, orthopnea, palpitations, paroxysmal nocturnal dyspnea. 19:09 Respiratory: Positive for dyspnea on exertion. 19:09 Back: Positive for pain at rest, pain with movement, of the right scapular area and right subscapular area. Exam: 21:05 Eyes: Pupils equal round and reactive to light, extra-ocular motions intact. Lids and jr8 lashes normal. Conjunctiva and sclera are non-icteric and not injected. Cornea within normal limits. Periorbital areas with no swelling, redness, or edema. ENT: Nares patent. No nasal discharge, no septal abnormalities noted. Tympanic membranes are normal and external auditory canals are clear. Oropharynx with no redness, swelling, or masses, exudates, or evidence of obstruction, uvula midline. Mucous membranes moist. Neck: Trachea midline, no thyromegaly or masses palpated, and no cervical lymphadenopathy. Supple, full range of motion without nuchal rigidity, or vertebral point tenderness. No Meningismus. Chest/axilla: Normal chest wall appearance and motion. Nontender with no deformity. No lesions are appreciated. Cardiovascular: Regular rate and rhythm with a normal S1 and S2. No gallops, murmurs, or rubs. Normal PMI, no JVD. No pulse deficits. Respiratory: Lungs have equal breath sounds bilaterally, clear to auscultation and percussion. No rales, rhonchi or wheezes noted. No increased work of breathing, no retractions or nasal flaring. Abdomen/GI: Soft, non-tender, with normal bowel sounds. No distension or tympany. No guarding or rebound. No evidence of tenderness throughout. Skin: Warm, dry with normal turgor. Normal color with no rashes, no lesions, and no evidence of cellulitis. MS/ Extremity: Pulses equal, no cyanosis. Neurovascular intact. Full, normal range of motion. Neuro: Awake and alert, GCS 15, oriented to person, place, time, and situation. Cranial nerves II-XII grossly intact. Motor strength 5/5 in all extremities. Sensory grossly intact. Cerebellar exam normal. Normal gait. 21:05 Back: pain, that is mild, of the right scapular area and right subscapular area. Vital Signs: 15:39 Pulse 113; Resp 22; Temp 98.5(TE); Pulse Ox 96% on R/A; Weight 145.15 kg (R); Height 6 kg ft. 3 in. (190.50 cm); Pain 6/10; 17:14 BP 118 / 93; Pulse 100; Resp 16; Pulse Ox 95% ; Pain 4/10; tc5 18:31 BP 129 / 98; Pulse 95; Resp 16; Pulse Ox 97% ; tc5 19:28 BP 124 / 93; Pulse 105; Resp 18; Pulse Ox 97% on R/A; cc4 19:55 BP 121 / 88; Pulse 99; Resp 18; Pulse Ox 97% on R/A; cc4 21:35 BP 126 / 83; Pulse 98; Resp 22; Temp 96.9(O); Pulse Ox 97% on R/A; cc4 15:39 Body Mass Index 40.00 (145.15 kg, 190.50 cm) kg MDM: 16:07 Patient medically screened. rust 21:05 Data reviewed: vital signs, nurses notes, lab test result(s), EKG, radiologic studies, rust CT scan, plain films. Data interpreted: Pulse oximetry: on room air is 97 %. Interpretation: normal. 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 ED course: Held discussion with patient about his blood work and CT scan findings. Most likely a true lung process as patient does not have any other signs of congestive heart failure and labs specific to his heart are unremarkable. Recommend following up with pulmonology based on his recent story and then what has been revealed today. We will trial him on a anti-inflammatory and a short course of antibiotics patient good with this and will follow up.. 06/16 15:58 Order name: Basic Metabolic Panel [facility] 06/16 15:58 Order name: CBC with Diff [facility] 06/16 15:58 Order name: LFT's; Complete Time: 17:02 [facility] 06/16 15:58 Order name: Magnesium; Complete Time: 17:02 [facility] 06/16 15:58 Order name: NT PRO-BNP; Complete Time: 17:02 [facility] 06/16 15:58 Order name: PT-INR; Complete Time: 16:54 [facility] 06/16 15:58 Order name: Troponin (emerg Dept Use Only); Complete Time: 17:02 [facility] 06/16 15:58 Order name: XRAY Chest (1 view); Complete Time: 17:28 [facility] 06/16 15:59 Order name: Basic Metabolic Panel; Complete Time: 17:02 [facility] 06/16 15:59 Order name: CBC with Automated Diff; Complete Time: 16:54 [facility] 06/16 17:03 Order name: CT Chest For PE Angio; Complete Time: 17:55 rust 06/16 17:56 Order name: COVID-19 : Document "Date of Symptom Onset" if Symptomatic. rust 06/16 20:46 Order name: SARS-COV-2 RT PCR; Complete Time: 20:50 [facility] 06/16 15:58 Order name: EKG; Complete Time: 15:59 [facility] 06/16 15:58 Order name: Cardiac monitoring; Complete Time: 19:33 [facility] 06/16 15:58 Order name: EKG - Nurse/Tech; Complete Time: 19:33 [facility] 06/16 15:58 Order name: IV Saline Lock; Complete Time: 16:40 [facility] 06/16 15:58 Order name: Labs collected and sent; Complete Time: 16:40 [facility] 06/16 15:58 Order name: O2 Per Protocol; Complete Time: 19:33 [facility] 06/16 15:58 Order name: O2 Sat Monitoring; Complete Time: 19:33 kdr Administered Medications: 17:00 Drug: fentaNYL (PF) 50 mcg Route: IVP; Site: right antecubital; tc5 17:38 Follow up: Response: No adverse reaction; Pain is decreased tc5 19:28 Drug: fentaNYL (PF) 50 mcg {Note: c/o right "shoulder blade" pain "7" on pain scale..} cc4 Route: IVP; Site: right antecubital; 19:55 Follow up: Response: No adverse reaction; Pain is decreased cc4 Disposition: 06/17 11:14 Co-signature as Attending Physician, Regan Dubon MD I agree with the assessment and kdr plan of care. Disposition Summary: 06/16/21 21:07 Discharge Ordered Location: Home jr8 Problem: new jr8 Symptoms: have improved jr8 Condition: Stable jr8 Diagnosis - Chest pain, unspecified jr8 - Dyspnea jr8 Followup: jr8 - With: Private Physician - When: 5 - 6 days - Reason: Recheck today's complaints, Continuance of care, Re-evaluation by your physician Discharge Instructions: - Discharge Summary Sheet jr8 - Nonspecific Chest Pain, Adult jr8 - Chest Wall Pain jr8 Forms: - Medication Reconciliation Form jr8 - Thank You Letter jr8 - Antibiotic Education jr8 - Prescription Opioid Use jr8 - Work release form jb4 Prescriptions: - Zithromax Z-Harsh 250 mg Oral Tablet - take 1 tablet by ORAL route as directed for 5 days Day 1 - take two (2) tablets jr8 one time. Day 2, 3, 4 , 5 take one (1) tablet once daily.; 6 tablet; Refills: 0, Product Selection Permitted Signatures: Dispatcher [employer] EDMS Regan Dubon MD MD [facility] Kt Peck PA PA jr8 Hortensia Olvera RN RN kg Leann Do RN RN cc4 Lanette Redding RN RN tc5 Corrections: (The following items were deleted from the chart) 06/16 15:48 15:42 Allergies: Codeine; kg kg 15:50 15:42 Home Meds: trilogy; kg kg 19:43 17:56 CORONAVIRUS ordered. EDIL EDIL
[2021-06-16 21:53] VITALS: O2SAT 97
[2021-06-16 21:57] VITALS: BP 126/83; TEMP 96.9
--- NOTE | 2021-06-17 15:57 | EKG ---
Test Date: 2021-06-16 Test Time: 20:16:04 Supervisor Post Wave: PEPE MEASUREMENT RESULTS: Intervals: Rate: 96 NM: 178 QRSD: 76 QT: 320 QTc: 404 [place]: P: 2 NM: 178 QRS: -44 T: 10 INTERPRETIVE STATEMENTS: Normal sinus rhythm Left axis deviation Cannot rule out Anterior infarct, age undetermined Abnormal ECG No previous ECG available for comparison Electronically Signed On 06-17-21 15:56:21 CDT by Shemar Kebede
== END 2021-06-16 21:45 | disposition home or self-care (01) ==
LOC: ER 15:33
DX: R07.9 Chest pain, unspecified (principal); R06.00 Dyspnea, unspecified; J45.909 Unspecified asthma, uncomplicated; I10 Essential (primary) hypertension; E11.9 Type 2 diabetes mellitus without complications; Z20.822 Contact with and (suspected) exposure to COVID-19; Z88.2 Allergy status to sulfonamides; Z88.8 Allergy status to other drugs, medicaments and biological substances
CPT/HCPCS: 93005; 85025; 80048; 36415; 83735; 85610; 80076; 84484; 83880; 71275; 71045; 96374; 99284; U0003; Q9967; J3010 ×2